=== PATIENT | male | born 1940 | race Caucasian/White ===

== ENCOUNTER → 2016-11-08 | Outpatient (CLI) | payer OTHER, BC ==
[~2016-11-08] MED LIST: ADULT LOW DOSE81 MG PO; ALLOPURINOL 30300 M2 PO; CARDIZEM CD120 MG PO; LIPITOR 20 MG T20 M1 PO; MICROZIDE12.5 MG PO; PRILOSEC 20 MG20 MG PO; XARELTO15 MG PO; ZESTRIL40 MG PO
[2016-11-08 09:20] LABS: CREATININE 1.6 mg/dL (0.6-1.3)
== END ==
LOC: CAT 08:24
PROVIDERS: Family Medicine
DX: N28.1 Cyst of kidney, acquired (principal); K57.30 Diverticulosis of large intestine without perforation or abscess without bleeding; R19.02 Left upper quadrant abdominal swelling, mass and lump

== ENCOUNTER → 2017-05-01 | Outpatient (CLI) | payer OTHER, BC | LOC: CAT 07:57 | DX: I71.4 Abdominal aortic aneurysm, without rupture (principal); N28.1 Cyst of kidney, acquired; K57.90 Diverticulosis of intestine, part unspecified, without perforation or abscess without bleeding ==

== ENCOUNTER → 2018-04-23 | Outpatient (CLI) | payer OTHER, BC ==
[2018-04-23 08:02] LABS: CREATININE 1.4 mg/dL (0.7-1.3)
== END ==
LOC: CAT 07:00
PROVIDERS: Family Medicine
DX: N28.1 Cyst of kidney, acquired (principal); J98.11 Atelectasis; I71.4 Abdominal aortic aneurysm, without rupture

== ENCOUNTER → 2018-05-07 | Outpatient (CLI) | payer OTHER, BC | LOC: CAT 08:25 → ULTRA 08:25 | DX: I71.4 Abdominal aortic aneurysm, without rupture (principal); N28.1 Cyst of kidney, acquired; Z87.891 Personal history of nicotine dependence ==